=== PATIENT | female | born 1950 | race Caucasian/White ===

== ENCOUNTER 2020-10-29 10:57 | Emergency (ER) | payer MEDICARE, BC ==
--- NOTE | 2020-10-29 11:24 | EDM.PDOC ---
ED HPI GENERAL MEDICAL PROBLEM - General Chief Complaint: Headache Stated Complaint: CHEST PAIN AND HEADACHE Time Seen by Provider: 10/29/20 11:24 Source of Information: Reports: Patient History Limitations: Reports: No Limitations - History of Present Illness INITIAL COMMENTS - FREE TEXT/NARRATIVE: pt arrived just not feeling normal. For about 1 month she has been having some chest pain off and on. One episode did seem to be provoked by exercise. She also for the past 3 days has had a very severe frontal headache. She does have a known shunt that was placed by Dr Zarate in [facility]. She has not been recently checked to see if the shunt is funtioning well. She has a elevated bp which is very unusual for her. Onset: Gradual Duration: Hour(s): Location: Reports: Head, Chest, Other ( elevated bp. ) Associated Symptoms: Reports: Headaches, Weakness headache Pain Score (Numeric/FACES): 6 - Related Data Allergies Allergy/AdvReac Type Severity Reaction Status Date / Time iodine Allergy Anaphylactic Verified 10/29/20 11:27 Shock sulfamethoxazole Allergy Hives Verified 10/29/20 11:26 [From Bactrim] trimethoprim [From Bactrim] Allergy Hives Verified 10/29/20 11:26 Home Meds: Home Meds NK [No Known Home Meds] 10/27/14 [History] Past Medical History Other Neuro History: hydrocephalous ED ROS GENERAL - Review of Systems Review Of Systems: See Below Constitutional: Reports: No Symptoms HEENT: Reports: No Symptoms Respiratory: Reports: No Symptoms Cardiovascular: Reports: Chest Pain, Other (headache) Endocrine: Reports: No Symptoms GI/Abdominal: Reports: No Symptoms : Reports: No Symptoms Musculoskeletal: Reports: No Symptoms Skin: Reports: No Symptoms Neurological: Reports: Dizziness, Headache Psychiatric: Reports: No Symptoms ED EXAM, GENERAL - Physical Exam Exam: See Below Free Text/Narrative:: pt arrived with a history of a severe frontal headache for 3 days. She has been having chest pain for the past month on and off. She has no chest pain at this time. Exam Limited By: No Limitations General Appearance: Alert, Anxious, Moderate Distress, Other (mainly from the headache. ) Ears: Normal TMs Nose: Normal Inspection Throat/Mouth: Normal Inspection Head: Normocephalic Neck: Normal Inspection Respiratory/Chest: No Respiratory Distress Cardiovascular: Regular Rate, Rhythm GI/Abdominal: Soft, Non-Tender (Female) Exam: Deferred Rectal (Female) Exam: Deferred Back Exam: Normal Inspection Extremities: Normal Inspection Neurological: Alert, Oriented, Normal Cognition Psychiatric: Anxious Course - Vital Signs Last Recorded V/S: Last Vital Signs Temp 35.9 C L 10/29/20 11:11 Pulse 69 10/29/20 15:43 Resp 12 10/29/20 15:43 BP 186/88 H 10/29/20 15:43 Pulse Ox 99 10/29/20 15:43 - Orders/Labs/Meds Orders: Active Orders 24 hr Category Date Time Status EKG Documentation Completion [RC] ASDIRECTED Care 10/29/20 11:23 Active EKG 12 Lead [EK] Routine Ther 10/29/20 11:23 Ordered Labs: Laboratory Tests 10/29/20 10/29/20 10/29/20 Range/Units 11:35 11:35 11:35 WBC 9.3 (4.5-11.0) K/uL RBC 4.56 (3.30-5.50) M/uL Hgb 13.2 (12.0-15.0) g/dL Hct 40.4 (36.0-48.0) % MCV 89 (80-98) fL MCH 29 (27-31) pg MCHC 33 (32-36) % Plt Count 288 (150-400) K/uL Neut % (Auto) 60 (36-66) % Lymph % (Auto) 27 (24-44) % [place] % (Auto) 10 H (2-6) % Eos % (Auto) 2 (2-4) % Baso % (Auto) 1 (0-1) % PT (9.5-12.0) sec INR (0.80-1.20) Sodium 142 (140-148) mmol/L Potassium 4.5 (3.6-5.2) mmol/L Chloride 105 (100-108) mmol/L Carbon Dioxide 26 (21-32) mmol/L Anion Gap 10.8 (5.0-14.0) mmol/L BUN 26 H (7-18) mg/dL Creatinine 1.0 (0.6-1.0) mg/dL Est Cr Clr Drug Dosing 49.00 mL/min Estimated GFR (MDRD) 55 L (>60) Glucose 114 H (74-106) mg/dL Calcium 9.1 (8.5-10.1) mg/dL Total Bilirubin 0.3 (0.2-1.0) mg/dL AST 18 (15-37) U/L ALT 30 (12-78) U/L Alkaline Phosphatase 68 (46-116) U/L Troponin I < 0.017 (0.000-0.056) ng/mL Total Protein 7.4 (6.4-8.2) g/dL Albumin 4.0 (3.4-5.0) g/dL Globulin 3.4 (2.3-3.5) g/dL Albumin/Globulin Ratio 1.2 (1.2-2.2) 10/29/20 Range/Units 14:00 WBC (4.5-11.0) K/uL RBC (3.30-5.50) M/uL Hgb (12.0-15.0) g/dL Hct (36.0-48.0) % MCV (80-98) fL MCH (27-31) pg MCHC (32-36) % Plt Count (150-400) K/uL Neut % (Auto) (36-66) % Lymph % (Auto) (24-44) % [place] % (Auto) (2-6) % Eos % (Auto) (2-4) % Baso % (Auto) (0-1) % PT 10.2 (9.5-12.0) sec INR 0.93 (0.80-1.20) Sodium (140-148) mmol/L Potassium (3.6-5.2) mmol/L Chloride (100-108) mmol/L Carbon Dioxide (21-32) mmol/L Anion Gap (5.0-14.0) mmol/L BUN (7-18) mg/dL Creatinine (0.6-1.0) mg/dL Est Cr Clr Drug Dosing mL/min Estimated GFR (MDRD) (>60) Glucose (74-106) mg/dL Calcium (8.5-10.1) mg/dL Total Bilirubin (0.2-1.0) mg/dL AST (15-37) U/L ALT (12-78) U/L Alkaline Phosphatase (46-116) U/L Troponin I (0.000-0.056) ng/mL Total Protein (6.4-8.2) g/dL Albumin (3.4-5.0) g/dL Globulin (2.3-3.5) g/dL Albumin/Globulin Ratio (1.2-2.2) Meds: Medications Discontinued Medications Generic Name Dose Route Start Last Admin Trade Name Freq PRN Reason Stop Dose Admin Oxycodone/Acetaminophen 1 tab 10/29/20 14:33 10/29/20 14:39 Acetaminophen/Oxycodone 325-5 Mg Tab PO 10/29/20 14:34 1 tab ONETIME ONE Administration - Re-Assessments/Exams Free Text/Narrative Re-Assessment/Exam: 10/29/20 16:14 pt has fairly persistent bp elevation. She is feeling quite hyper will have this rechecked in 2 days. She was found to have 2 small subdurals and will have a repeat cat scan in 2 days. She is having atypical chest pain and she will eventually have a exercise cardiolyte. 10/29/20 16:15 neuro surgery at [facility] was consulted and they did suggest the follow up cat scan and felt she should be seen in their clinic in the next week to 10 days. b Departure - Departure Time of Disposition: 16:04 Disposition: Home, Self-Care 01 Condition: Fair Clinical Impression: Subdural hematoma, Atypical chest pain, Elevated BP without diagnosis of hypertension Referrals: Ada Rosado PA [Primary Care Provider] - Forms: ED Department Discharge Care Plan Goals: pt will have a repeat catscan of the head in 2 days, appt with ana rosado in 2-3 days to follow up on cat scan and bp. the pt has been having atypical chest pain and eventually should be set up for a exercise cardiolyte. She does need to be scheduled for an appt with neurosurgeon Dr Zarate at [facility]. She needs to follow up on the subdural and her shunt. A copy of the head scan was sent to [facility]. Irwin 5/325 q6h prn for headache. Rtc if the headache should get worse. Sepsis Event Note (ED) - Evaluation Sepsis Screening Result: No Definite Risk - Focused Exam Vital Signs: Vital Signs Temp Pulse Resp BP Pulse Ox 10/29/20 15:43 69 12 186/88 H 99 10/29/20 14:37 74 14 200/94 H 99 10/29/20 13:27 12 168/66 H 99 10/29/20 12:17 12 173/68 H 98 10/29/20 11:23 16 187/84 H 98 10/29/20 11:22 84 18 208/81 H 98 10/29/20 11:11 35.9 C L 84 18 208/81 H 98 - My Orders Last 24 Hours: My Active Orders 10/29/20 11:23 EKG Documentation Completion [RC] ASDIRECTED EKG 12 Lead [EK] Routine - Assessment/Plan Last 24 Hours: My Active Orders 10/29/20 11:23 EKG Documentation Completion [RC] ASDIRECTED EKG 12 Lead [EK] Routine
--- NOTE | 2020-10-29 13:32 | CRLCT ---
INDICATION: Severe headache. History of shunt. TECHNIQUE: Scanning of the head was performed without IV contrast material. Coronal and sagittal reconstructions were obtained. COMPARISON: Head CT of 08/19/2016. FINDINGS: There appear to be small acute to subacute frontoparietal subdural hematomas bilaterally measuring up to 4 mm in thickness bilaterally on the coronal reconstructions. These produce balanced mass effect with no midline shift. The quadrigeminal cistern remains widely patent. A right-sided shunt tube is again demonstrated. There is no evidence of hydrocephalus. The lateral ventricles are smaller than on the previous examination. Differentiation between the caal matter and white matter is preserved. No calvarial abnormality is evident. The visualized paranasal and mastoid sinuses are clear. IMPRESSION: 1. Small acute to subacute frontoparietal subdural hematomas bilateral measuring up to 4 mm in thickness, producing balanced local mass-effect. 2. Unchanged right sided shunt tube. No hydrocephalus. Lateral ventricles smaller than on the previous exam. These findings were discussed with Dr. Echols at 1:25 p.m. on 10/29/2020. Please note that all CT scans at this facility use dose modulation, iterative reconstruction, and/or weight-based dosing when appropriate to reduce radiation dose to as low as reasonably achievable. Dictated by Murali Mann MD @ 10/29/2020 1:31:[address] Murali Mann @ Oct 29 2020 1:31PM
[2020-10-29] MEDS ORDERED: Acetaminophen/oxyCODONE 325-5 MG Tab PO ONE (14:33)
[2020-10-29 15:44] VITALS: BP 186/88; PULSE 69
== END 2020-10-29 16:24 | disposition home or self-care (01) ==
LOC: JP.ED 10:57
DX: I62.00 Nontraumatic subdural hemorrhage, unspecified (principal); R07.89 Other chest pain; R03.0 Elevated blood-pressure reading, without diagnosis of hypertension; Z91.048 Other nonmedicinal substance allergy status; Z88.2 Allergy status to sulfonamides; Z88.1 Allergy status to other antibiotic agents
CPT/HCPCS: 36415; 70450; 80053; 84484; 85025; 85610; 93005; 99284; 99285; A9270; 93010

== ENCOUNTER 2023-01-29 18:56 | Emergency (ER) | payer MEDICARE, BC ==
[2023-01-29] MEDS ORDERED: Sodium Chloride 0.9% 10 ML Syringe FLUSH PRN (18:59)
[2023-01-29 19:12] LABS: BASOPHILS ABSOLUTE AUTO 0.08 K/uL (0.00-0.10); BASOPHILS PERCENT AUTO 0.9 % (0.1-1.3); EOSINOPHILS ABSOLUTE AUTO 0.24 K/uL (0.00-0.40); EOSINOPHILS PERCENT AUTO 2.6 % (0.0-5.4); HEMATOCRIT 39.9 % (34.3-46.0); HEMOGLOBIN 13.5 g/dL (11.2-15.5); IMMATURE GRAN ABSOLUTE AUTO 0.03 K/uL (0.00-0.23); IMMATURE GRAN PERCENT AUTO 0.3 % (0.0-0.7); LYMPHOCYTES ABSOLUTE AUTO 2.85 K/uL (0.8-3.3); LYMPHOCYTES PERCENT AUTO 30.4 % (11.4-47.7); MEAN CORPUSCULAR HEMOGLOBIN 29.5 pg (31.6-35.5); MEAN CORPUSCULAR HGB CONC 33.8 g/dL (31.6-35.5); MEAN CORPUSCULAR VOLUME 87.1 fL (81.4-99.0); MONOCYTES ABSOLUTE AUTO 0.96 K/uL (0.20-0.90); MONOCYTES PERCENT AUTO 10.2 % (3.3-12.6); NEUTROPHILS ABSOLUTE AUTO 5.22 K/uL (1.0-7.6); NEUTROPHILS PERCENT AUTO 55.6 % (40.0-78.1); PLATELET COUNT,PLT 271 K/uL (130-375); RED BLOOD CELL COUNT 4.58 M/uL (3.77-5.24); WHITE BLOOD CELL COUNT,WBC 9.4 K/uL (3.2-11.0)
[2023-01-29 19:31] LABS: PROTHROMBIN TIME 9.9 sec (9.2-10.6); PTT,PARTIAL THROMBOPLSTIN TIME 24.3 sec (21.8-27.3)
[2023-01-29 19:35] LABS: ANION GAP 11.2 mmol/L (5.0-14.0); BLOOD UREA NITROGEN,BUN 19 mg/dL (7-18); CALCIUM 9.2 mg/dL (8.5-10.1); CARBON DIOXIDE,CO2 26 mmol/L (21-32); CHLORIDE,CL 103 mmol/L (100-108); CREATININE 0.9 mg/dL (0.6-1.0); ESTIMATED GFR 68 mL/min (>60); GLUCOSE RANDOM 119 mg/dL (74-106); SODIUM,NA 140 mmol/L (140-148); TROPONIN I HIGH SENSITIVITY 15.1 pg/mL (<=60.3)
[2023-01-29] MEDS ORDERED: Labetalol 20 MG/4 ML Syringe IVPUSH ONE (19:48)
[2023-01-29 22:39] VITALS: BP 151/60; PULSE 65
== END 2023-01-29 22:45 ==
LOC: JP.ED 18:56
DX: R29.810 Facial weakness (principal); R47.1 Dysarthria and anarthria; R53.1 Weakness; Z91.018 Allergy to other foods; Z91.041 Radiographic dye allergy status; Z88.1 Allergy status to other antibiotic agents; Z91.013 Allergy to seafood; Z98.2 Presence of cerebrospinal fluid drainage device
CPT/HCPCS: 36415; 70450; 80048; 84484; 85025; 85610; 85730; 93005; 96374; 99285; J3490

== ENCOUNTER 2023-03-05 13:26 | Emergency (ER) | payer MEDICARE, BC ==
[2023-03-05 13:48] VITALS: BP 180/61; PULSE 66
[2023-03-05 14:10] LABS: BASOPHILS ABSOLUTE AUTO 0.06 K/uL (0.00-0.10); BASOPHILS PERCENT AUTO 0.7 % (0.1-1.3); EOSINOPHILS ABSOLUTE AUTO 0.13 K/uL (0.00-0.40); EOSINOPHILS PERCENT AUTO 1.6 % (0.0-5.4); HEMATOCRIT 38.7 % (34.3-46.0); IMMATURE GRAN PERCENT AUTO 0.2 % (0.0-0.7); LYMPHOCYTES ABSOLUTE AUTO 2.52 K/uL (0.8-3.3); LYMPHOCYTES PERCENT AUTO 31.4 % (11.4-47.7); MEAN CORPUSCULAR HEMOGLOBIN 29.1 pg (31.6-35.5); MEAN CORPUSCULAR HGB CONC 33.6 g/dL (31.6-35.5); MEAN CORPUSCULAR VOLUME 86.6 fL (81.4-99.0); MONOCYTES ABSOLUTE AUTO 0.55 K/uL (0.20-0.90); MONOCYTES PERCENT AUTO 6.9 % (3.3-12.6); NEUTROPHILS ABSOLUTE AUTO 4.74 K/uL (1.0-7.6); NEUTROPHILS PERCENT AUTO 59.2 % (40.0-78.1); PLATELET COUNT,PLT 239 K/uL (130-375); RED BLOOD CELL COUNT 4.47 M/uL (3.77-5.24)
[2023-03-05 14:13] LABS: IMMATURE GRAN ABSOLUTE AUTO 0.02 K/uL (0.00-0.23)
[2023-03-05 14:25] LABS: CALCIUM 8.7 mg/dL (8.5-10.1); CREATININE 0.9 mg/dL (0.6-1.0); EST CRCL DRUG DOSING (CG) 54.94 mL/min; POTASSIUM,K 3.4 mmol/L (3.6-5.2)
[2023-03-05 14:26] LABS: ANION GAP 15.4 mmol/L (5.0-14.0)
== END 2023-03-05 16:56 | disposition home or self-care (01) ==
LOC: JP.ED 13:26
DX: G45.9 Transient cerebral ischemic attack, unspecified (principal); Z88.2 Allergy status to sulfonamides; Z88.8 Allergy status to other drugs, medicaments and biological substances; Z91.041 Radiographic dye allergy status; Z91.018 Allergy to other foods; Z91.013 Allergy to seafood
CPT/HCPCS: 36415; 70450; 70450-26; 80048; 82947; 85025; 93005; 93010; 99284; 99285

== ENCOUNTER 2023-07-19 11:47 | Emergency (ER) | payer MEDICARE, BC ==
[2023-07-19 12:30] LABS: BASOPHILS ABSOLUTE AUTO 0.06 K/uL (0.00-0.10); BASOPHILS PERCENT AUTO 0.7 % (0.1-1.3); EOSINOPHILS ABSOLUTE AUTO 0.16 K/uL (0.00-0.40); EOSINOPHILS PERCENT AUTO 1.7 % (0.0-5.4); HEMATOCRIT 39.3 % (34.3-46.0); HEMOGLOBIN 13.3 g/dL (11.2-15.5); IMMATURE GRAN PERCENT AUTO 0.2 % (0.0-0.7); LYMPHOCYTES ABSOLUTE AUTO 2.39 K/uL (0.8-3.3); MEAN CORPUSCULAR HEMOGLOBIN 29.2 pg (31.6-35.5); MEAN CORPUSCULAR HGB CONC 33.8 g/dL (31.6-35.5); MEAN CORPUSCULAR VOLUME 86.4 fL (81.4-99.0); MONOCYTES ABSOLUTE AUTO 0.87 K/uL (0.20-0.90); MONOCYTES PERCENT AUTO 9.5 % (3.3-12.6); NEUTROPHILS ABSOLUTE AUTO 5.69 K/uL (1.0-7.6); NEUTROPHILS PERCENT AUTO 61.9 % (40.0-78.1); PLATELET COUNT,PLT 265 K/uL (130-375); RED BLOOD CELL COUNT 4.55 M/uL (3.77-5.24); WHITE BLOOD CELL COUNT,WBC 9.2 K/uL (3.2-11.0)
[2023-07-19 12:32] LABS: IMMATURE GRAN ABSOLUTE AUTO 0.02 K/uL (0.00-0.23)
[2023-07-19 12:50] LABS: INR 2.2; PROTHROMBIN TIME 21.4 sec (9.2-10.6); PTT,PARTIAL THROMBOPLSTIN TIME 34.8 sec (21.8-27.3)
[2023-07-19 12:52] LABS: CREATININE 0.8 mg/dL (0.6-1.0); EST CRCL DRUG DOSING (CG) 59.51 mL/min; POTASSIUM,K 3.9 mmol/L (3.6-5.2)
[2023-07-19 12:53] LABS: ANION GAP 14.9 mmol/L (5.0-14.0); TROPONIN I HIGH SENSITIVITY 184.5 pg/mL (<=60.3)
[2023-07-19] MEDS ORDERED: Metoprolol Tartrate 5 MG in Sodium Chloride 0.9% 50 ML IV ONE (13:05)
[2023-07-19] MEDS: Aspirin 81 MG Tab.Chew PO ONE (13:08)
[2023-07-19] MEDS: Metoprolol Tartrate 5 MG/5 ML SDV IV ONE (13:17)
[2023-07-19] MEDS: Sodium Chloride 0.9% 10 ML Syringe FLUSH PRN (13:19)
[2023-07-19 14:12] VITALS: BP 162/90; PULSE 74
== END 2023-07-19 15:13 | disposition left against medical advice (07) ==
LOC: JP.ED 11:47
DX: I21.4 Non-ST elevation (NSTEMI) myocardial infarction (principal); I48.0 Paroxysmal atrial fibrillation; Z79.01 Long term (current) use of anticoagulants; G91.2 (Idiopathic) normal pressure hydrocephalus; Z98.2 Presence of cerebrospinal fluid drainage device; Z79.82 Long term (current) use of aspirin; Z91.013 Allergy to seafood; Z91.018 Allergy to other foods; Z88.2 Allergy status to sulfonamides; Z91.041 Radiographic dye allergy status; Z79.899 Other long term (current) drug therapy
CPT/HCPCS: 36415; 80048; 84484; 85025; 85610; 85730; 93005; 96374; 99285; A9270; J3490; 93010

== ENCOUNTER 2024-12-20 20:19 | Emergency (ER) | payer MEDICARE, BC ==
[2024-12-20 21:46] VITALS: BP 193/75; PULSE 73
== END 2024-12-20 22:31 | disposition left against medical advice (07) ==
LOC: JP.ED 20:19
DX: Z53.21 Procedure and treatment not carried out due to patient leaving prior to being seen by health care provider (principal)
CPT/HCPCS: 70450